=== PATIENT | female | born 1990 | race Caucasian/White ===

== ENCOUNTER 2018-10-28 10:27 | Emergency (ER) | payer OTHER ==
[2018-10-28] MEDS ORDERED: fentaNYL 100 MCG/2 ML INJ IVP ONE (11:07)
--- NOTE | 2018-10-28 11:22 | EDPHY ---
HPI/HX/ROS/PE/MDM Narrative: CLINICAL IMPRESSION: Dysphagia ASSESSMENT/PLAN: 28-year-old female presents to the emergency department with approximately 7-8 months of progressively worsening dysphagia. Patient reports she is now only tolerating liquid foods but reports no sensation of obstruction. She has been compliant with however felt outpatient PPI therapy, H2 blockers, Tums, dietary adjustments, and reports a 20 lb weight loss over the last 8 months. She has not been able to get in to a GI specialist despite attempts at contacting them. Labs are reassuring today with no evidence of pancreatitis, transaminitis, leukocytosis, severe dehydration, or electrolyte imbalance. Barium swallow shows no evidence of significant esophageal stricture and only trace GERD is noted. She received a GI cocktail with some improvement in symptoms. EKG reviewed with the ED attending, no evidence of acute ST or T-wave changes. Case Management met with the patient and was able to reschedule her GI appointment which was previously scheduled for December to tomorrow at 8:00 a.m.. I encouraged patient to keep this appointment. Case discussed with Dr. Dinero. Warning signs for return to ER outlined in d/c. DIFFERENTIAL DX: Differential diagnosis includes but not limited to chronic esophagitis, Crohn' s disease, esophageal stricture, achalasia, pancreatitis, ED PROCEDURES: See lab and imaging results below ED COURSE: 11:20 a.m.: Discussed with Dr. Dinero. Also discussed with case management Renee to help expedite an appointment with GI [facility] 11:43am: discussed with Dr. Barreto, will change to barium swallow vs gastrographen which he only orders for suspected leak. 12:30 p.m.: Case discussed with Dr. Barreto. Trace reflex noted on barium swallow with otherwise normal findings. Discussed with case management specialist Renee who was able to identify patient's GI provider as [facility]. They had a cancellation and can get the patient in tomorrow at 8:00 a.m. Which patient agrees to. CHIEF COMPLAINT: Painful swallowing HPI: This is an otherwise healthy 28-year-old female who presents to the emergency department with complaints of painful swallowing, substernal chest burning, upper abdominal pain with radiation to the back, and a 20 lb weight loss since January. Patient states symptoms began after she had a skiing accident in January and fractured several ribs. Since that time she has had persistent burning discomfort in the anterior chest. She had a normal cardiac workup at her primary care office. She has been trying Protonix for 5 months, Zantac before that and Tums before that. She has made significant dietary changes. At this point she states she cannot even eat solid food because she experiences so much pain. She feels her best upon awakening with an empty stomach. No reported fever or chills. She has had a prior cholecystectomy. She does have epigastric pain that radiates to the back and she describes this as"a knife going through my back". She denies black or bloody stools. No history of vomiting. She was not tested for H pylori. She has an appointment with an unknown GI specialist but not until December. She has apparently been trying to reach [facility] for an appointment without success. 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 There is no family history of esophageal cancer, ulcerative colitis, Crohn's disease, eosinophilic esophagitis , cardiac disease at a young age or autoimmune disease. 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 ENT: No sore throat, congestion, ear pain. Cardiovascular: No chest pain, no palpitations. Respiratory: No cough, no shortness of breath. Gastrointestinal: + abdominal pain, no vomiting, diarrhea. Skin: No rashes, color change. PHYSICAL EXAM: General Appearance: Alert, oriented, appropriate, cooperative, thin, NAD, well hydrated, non-toxic appearing, VSS, no hypoxia. HEENT: TMs are clear bilaterally no perforation or FB, no injection, no evidence of serous or mucopurulent otitis. Oropharynx clear is no erythema or exudates, no tonsillar hypertrophy or asymmetry. Dentition without abnormality. Neck: Supple, nontender, no lymphadenopathy, no midline pain, FROM, no meningismus. Respiratory: There are no retractions, lungs are clear to auscultation. Cardiac: Regular rate and rhythm, no murmurs or gallops. Gastrointestinal: Abdomen is soft, epigastric tenderness, bowel sounds normal, no masses/hernia, no rigidity, guarding or focal peritoneal findings. Neurological: [ Alert and oriented x 3 Skin: Warm, dry, no rashes, no nodules on palpation. MEDICAL DECISION MAKING: Patient was seen independently. Secondary supervising physician at time of evaluation was Dr. Dinero . Diagnosis: Dysphagia. New, requires workup Summary: See Assessment and Plan for summary of ED visit Clinical lab tests: ordered / reviewed. Discussed patient with another provider: Dr. Dinero, Dr. Barreto Patient Progress: Stable. - Data Points Laboratory Results: Laboratory Results 10/28/18 11:10 10/28/18 11:10 10/28/18 10/28/18 11:10 11:10 WBC 5.88 10^3/uL 10^3/uL (3.80-9.50) RBC 4.97 10^6/uL 10^6/uL (4.18-5.33) Hgb 14.9 g/dL g/dL (12.6-16.3) Hct 43.1 % % (38.0-47.0) MCV 86.7 fL fL (81.5-99.8) MCH 30.0 pg pg (27.9-34.1) MCHC 34.6 g/dL g/dL (32.4-36.7) RDW 11.8 % % (11.5-15.2) Plt Count 218 10^3/uL 10^3/uL (150-400) MPV 10.3 fL fL (8.7-11.7) Neut % (Auto) 69.3 % % (39.3-74.2) Lymph % (Auto) 23.6 % % (15.0-45.0) [place] % (Auto) 6.1 % % (4.5-13.0) Eos % (Auto) 0.5 % L % (0.6-7.6) Baso % (Auto) 0.3 % % (0.3-1.7) Nucleat RBC Rel Count 0.0 % % (0.0-0.2) Absolute Neuts (auto) 4.07 10^3/uL 10^3/uL (1.70-6.50) Absolute Lymphs (auto) 1.39 10^3/uL 10^3/uL (1.00-3.00) Absolute Monos (auto) 0.36 10^3/uL 10^3/uL (0.30-0.80) Absolute Eos (auto) 0.03 10^3/uL 10^3/uL (0.03-0.40) Absolute Basos (auto) 0.02 10^3/uL 10^3/uL (0.02-0.10) Absolute Nucleated RBC 0.00 10^3/uL 10^3/uL (0-0.01) Immature Gran % 0.2 % % (0.0-1.1) Immature Gran # 0.01 10^3/uL 10^3/uL (0.00-0.10) Sodium 138 mEq/L mEq/L (135-145) Potassium 3.6 mEq/L mEq/L (3.3-5.0) Chloride 106 mEq/L mEq/L (97-110) Carbon Dioxide 22 mEq/l mEq/l (22-31) Anion Gap 10 mEq/L mEq/L (6-14) BUN 10 mg/dL mg/dL (7-23) Creatinine 0.6 mg/dL mg/dL (0.6-1.0) Estimated GFR > 60 Glucose 90 mg/dL mg/dL (70-100) Calcium 9.8 mg/dL mg/dL (8.5-10.4) Total Bilirubin 1.3 mg/dL mg/dL (0.1-1.4) Conjugated Bilirubin 0.2 mg/dL mg/dL (0.0-0.5) Unconjugated Bilirubin 1.1 mg/dL mg/dL (0.0-1.1) AST 18 IU/L IU/L (14-46) ALT 25 IU/L IU/L (9-52) Alkaline Phosphatase 69 IU/L IU/L (38-126) Total Protein 8.7 g/dL H g/dL (6.3-8.2) Albumin 5.1 g/dL H g/dL (3.5-5.0) Lipase 33 IU/L IU/L (23-300) Medications Given: Discontinued Medications Fentanyl (Sublimaze) 50 mcg IVP EDNOW ONE Stop: 10/28/18 11:08 Last Admin: 10/28/18 11:25 Dose: 50 mcg General Time Seen by Provider: 10/28/18 10:52 Initial Vital Signs: Initial Vital Signs Temperature (C) 36.4 C 10/28/18 10:31 Heart Rate 70 10/28/18 10:31 Respiratory Rate 18 10/28/18 10:31 Blood Pressure 121/77 H 10/28/18 10:31 O2 Sat (%) 98 10/28/18 10:31 O2 Delivery Mode Room Air Allergies/Adverse Reactions: No Known Allergies Allergy (Verified 10/28/18 10:30) Home Medications: Medication Instructions Recorded DEXILANT 10/28/18 Gaviscon 80-14.2 mg Tab Chew 10/28/18 Hydrocodone/APAP 5/325 [[place] 1 - 2 tab PO Q4H PRN #10 tab 10/28/18 5/325 (*)] MIRENA 10/28/18 Prilosec 10/28/18 Zantac 10/28/18 Departure - Departure Disposition: Home, Routine, Self-Care Clinical Impression: Dysphagia Qualifiers: Dysphagia type: esophageal phase Qualified Code(s): R13.10 - Dysphagia, unspecified Condition: Good Instructions: Chronic Dysphagia (DC) Additional Instructions: DISCHARGE INSTRUCTIONS FROM YOUR DOCTOR Thank you for visiting our emergency department today. Please keep in mind that discharge from the emergency department does not mean that there is nothing wrong - it simply means that we have not identified an emergency condition that requires further evaluation or treatment in the hospital. You should always plan to follow up with primary care for re-evaluation of your condition in the next 2-3 days. If you have been referred to a specialist, please call as soon as possible (today or tomorrow) to schedule your follow up appointment at the appropriate time. You have an appointment tomorrow 10/29/[address] Hernandez at [facility] at 8:00am. Please arrive by 7:45am. Your barium swallow test today was read by the Radiology showing only trace reflux with no other abnormal findings. Lab work was reassuring. Please follow-up with GI and PCP as scheduled. Return to the emergency department sooner for worsening symptoms, inability to stay hydrated, vomiting blood, severe chest pain or shortness of breath, or any other concerns. People present with illnesses and injuries in different ways, and it is always possible that we have missed something. You may always return for re-evaluation if symptoms worsen or if they are not improving or if you develop new/different symptoms. Again, thank you for choosing our emergency department. We hope that you feel better. Referrals: NONE *PRIMARY CARE P,. [Primary Care Provider] - As per Instructions Maryann Cavazos MD [Non Staff Provider (MD)] - As per Instructions Prescriptions: Hydrocodone/APAP 5/325 [[place] 5/325 (*)] 1 - 2 tab PO Q4H PRN #10 tab PRN Reason: Pain, Moderate
[2018-10-28 11:27] LABS: PLATELET COUNT 218 10^3/uL (150-400)
[2018-10-28] MEDS ORDERED: VANCOMYCIN 1.5 GM in D5W 250 ML IV ONE (11:42)
--- NOTE | 2018-10-28 11:48 | CPEKG ---
Test Reason : OPEN Blood Pressure : / mmHG Vent. Rate : 060 BPM Atrial Rate : 000 BPM P-R Int : 152 ms QRS Dur : 077 ms QT Int : 415 ms P-R-T Axes : 074 061 021 degrees QTc Int : 415 ms Sinus arrhythmia Confirmed by Reji Dinero ([id number]) on 10/28/2018 11:48:37 AM Referred By: Confirmed By:Reji Dinero
[2018-10-28] MEDS ORDERED: MAG HYDROX/AL HYDROX/SIMETH 30 ML UDCUP PO ONE (12:43)
[2018-10-28] MEDS ORDERED: LIDOCAINE 2% VISCOUS 15 ML UDCUP PO ONE (12:43)
[2018-10-28] MEDS ORDERED: HYOSCYAMINE SULFATE 0.125 MG TAB PO ONE (12:43)
[2018-10-28 13:03] VITALS: BP 113/75
--- NOTE | 2018-10-28 19:33 | ASMTCMCOM ---
CM Note CM Note Notes: Requested to assist pt with getting an earlier appt w/a GI specialist. Pt states she has an appt at [facility] in [place] in December. This CM called [facility] ([phone]) and they had a cancellation tomorrow. Pt able to get an appt tomorrow 10/29 at 8am. This CM faxed over ED report and imaging results to [facility] ( ). CM available for further assistance if needed. Date Signed: 10/28/2018 07:32 PM Electronically Signed By:Renee Chen RN
== END 2018-10-28 13:00 | disposition home or self-care (01) ==
DX: R13.10 Dysphagia, unspecified (principal); Z90.49 Acquired absence of other specified parts of digestive tract
CPT/HCPCS: 96374; J3010; J3370

== ENCOUNTER 2018-12-23 12:58 | Emergency (ER) | payer OTHER ==
--- NOTE | 2018-12-23 13:41 | EDPHY ---
H & P Stated Complaint: CP Time Seen by Provider: 12/23/18 13:40 HPI/ROS: HPI: This is a 28-year-old female who presents with Chief Complaint: Chest pain Location: Chest Quality: Pain Duration: Months Signs and Symptoms: no shortness of breath at rest, no shortness of breath on exertion, no cough, no palpitations, no lower extremity edema, no wheezing, no orthopnea, no paroxysmal nocturnal dyspnea, no fever, no injury/trauma, no hemoptysis, no carpal pedal spasms Timing: Worsening Severity: Moderate Context: Patient reports that she was diagnosed GERD after being seen here late last year with the esophagram that showed reflux. She is status post cholecystectomy and appendectomy. She reports that over the last several months despite taking omeprazole in the mornings she has several episodes per day of generalized anterior chest pain as well as thoracic back pain not radiating in nature accompanied by shortness of breath. She reports that this happened several times per day and"takes my breath away." She reports that nothing makes the pain better or worse. She has changed her diet with no improvement in the symptoms. She reports that she saw banker mason in [place] and had an EGD performed outpatient that showed reflux and was negative for H pylori infection, peptic ulcer disease, gastritis. She does not drink alcohol or take NSAIDs regularly. She reports"I can't take it anymore any relief and I need answers." Modifying Factors: Omeprazole Comment: ROS: A comprehensive 10 system review of systems is otherwise negative aside from elements mentioned in the history of present illness. MEDICAL/SURGICAL/SOCIAL HISTORY: Medical history: GERD. Takes control pills orally. Last menstrual period approximately 6 weeks ago but this is not abnormal for her Surgical history: Cholecystectomy, appendectomy Social history: Employed. Nonsmoker. CONSTITUTIONAL: Well-developed, well-nourished young adult female, awake and alert, no obvious distress HEENT: Atraumatic and normocephalic, PERRL, EOMI. Nares patent; no rhinorrhea; no nasal mucosal edema. Tympanic membranes clear. Oropharynx clear, no exudate and moist pink mucosa. Airway patent. No lymphadenopathy. No meningismus. Cardiovascular: Normal S1/S2, regular rate, regular rhythm, without murmur rub or gallop. PULMONARY/CHEST: Symmetrical and nontender. Clear to auscultation bilaterally. Good air movement. No accessory muscle usage. ABDOMEN: Soft, nondistended, nontender, no rebound, no guarding, no peritoneal signs, no masses or organomegaly. No CVAT. EXTREMITIES: 2/2 pulses, strength 5/5, no deformities, no clubbing, no cyanosis or edema. NEUROLOGICAL: no focal neuro deficits. GCS 15. SKIN: Warm and dry, no erythema. no rash. Good capillary refill. Source: Patient, Old records Exam Limitations: No limitations - Personal History Current Tetanus/Diphtheria Vaccine: Yes Current Tetanus Diphtheria and Acellular Pertussis (TDAP): Yes - Medical/Surgical History Hx Asthma: No Hx Chronic Respiratory Disease: No Hx Diabetes: No Hx Cardiac Disease: No Hx Renal Disease: No Hx Cirrhosis: No Hx Alcoholism: No Hx HIV/AIDS: No Hx Splenectomy or Spleen Trauma: No Other PMH: GERD/ CHOLY APPY - Social History Smoking Status: Never smoked Constitutional: Initial Vital Signs Temperature (C) 36.8 C 12/23/18 13:03 Heart Rate 75 12/23/18 13:03 Respiratory Rate 16 12/23/18 13:03 Blood Pressure 119/84 H 12/23/18 13:03 O2 Sat (%) 93 12/23/18 13:03 O2 Delivery Mode Room Air Allergies/Adverse Reactions: No Known Allergies Allergy (Verified 12/23/18 13:01) Home Medications: Medication Instructions Recorded Bcp 12/23/18 Omeprazole 12/23/18 Medical Decision Making - Diagnostics Imaging Results: Imaging Impressions Chest/Thorax CTA 12/23/18 13:51 Impression: 1. No definite pulmonary thromboemboli. 2. No aortic aneurysm or dissection. 3. Normal CT chest. Findings and recommendations discussed with Emergency Department physician, Stephie Son at 1509 hour, 12/23/2018. Final report concurs with initial preliminary interpretation. ED Course/Re-evaluation: Vital signs reviewed and stable upon arrival. IV access, laboratory studies, CTA chest ordered Patient given 2 L normal saline, IV Ativan 1 mg, IV Reglan 10 mg, IV Benadryl 25 mg 1429: Labs reviewed. No signs of leukocytosis/anemia/platelet dysfunction/MARCUS/ elevated LFTs/electrolyte imbalance/pancreatitis/. 1509: Called by radiologist, Dr. Vargas on a who reports CT a chest shows no pulmonary embolism, no aortic aneurysm, no pleural effusion, no pneumonia 1540: Reassessed patient who reports near complete relief of symptoms. Suspect esophageal spasm versus anxiety versus gastroparesis Patient will follow up with her banker mason and work note provided per request. Patient politely declines any medications being started at this time and prefers to follow up with Gastroenterology. Patient is drinking liquids without difficulty prior to discharge. HEART score= low risk I reviewed the share decision making instrument with the patient, including risk of MACE, and the patient (and family) that are in agreement with the chosen disposition. This patient was seen under the supervision of my secondary supervising physician. I evaluated care for this patient with attending. Discussed this patient with Dr. Purdy who did not see the patient. Differential Diagnosis: Chest pain including but not limited to myocardial ischemia, pulmonary embolus, chest wall pain, pleural inflammation and pulmonary infectious causes. - Data Points Laboratory Results: Laboratory Results 12/23/18 13:57 12/23/18 13:57 12/23/18 12/23/18 12/23/18 13:57 13:57 13:57 WBC 7.74 10^3/uL 10^3/uL (3.80-9.50) RBC 4.48 10^6/uL 10^6/uL (4.18-5.33) Hgb 13.4 g/dL g/dL (12.6-16.3) Hct 38.7 % % (38.0-47.0) MCV 86.4 fL fL (81.5-99.8) MCH 29.9 pg pg (27.9-34.1) MCHC 34.6 g/dL g/dL (32.4-36.7) RDW 11.8 % % (11.5-15.2) Plt Count 191 10^3/uL 10^3/uL (150-400) MPV 10.0 fL fL (8.7-11.7) Neut % (Auto) 70.2 % % (39.3-74.2) Lymph % (Auto) 23.0 % % (15.0-45.0) [place] % (Auto) 5.4 % % (4.5-13.0) Eos % (Auto) 0.8 % % (0.6-7.6) Baso % (Auto) 0.3 % % (0.3-1.7) Nucleat RBC Rel Count 0.0 % % (0.0-0.2) Absolute Neuts (auto) 5.44 10^3/uL 10^3/uL (1.70-6.50) Absolute Lymphs (auto) 1.78 10^3/uL 10^3/uL (1.00-3.00) Absolute Monos (auto) 0.42 10^3/uL 10^3/uL (0.30-0.80) Absolute Eos (auto) 0.06 10^3/uL 10^3/uL (0.03-0.40) Absolute Basos (auto) 0.02 10^3/uL 10^3/uL (0.02-0.10) Absolute Nucleated RBC 0.00 10^3/uL 10^3/uL (0-0.01) Immature Gran % 0.3 % % (0.0-1.1) Immature Gran # 0.02 10^3/uL 10^3/uL (0.00-0.10) Sodium 137 mEq/L mEq/L (135-145) Potassium 3.4 mEq/L L mEq/L (3.5-5.2) Chloride 108 mEq/L mEq/L (97-110) Carbon Dioxide 21 mEq/l L mEq/l (22-31) Anion Gap 8 mEq/L mEq/L (6-14) BUN 10 mg/dL mg/dL (7-23) Creatinine 0.6 mg/dL mg/dL (0.6-1.0) Estimated GFR > 60 Glucose 88 mg/dL mg/dL (70-100) Calcium 9.0 mg/dL mg/dL (8.5-10.4) Total Bilirubin 0.5 mg/dL mg/dL (0.1-1.4) Conjugated Bilirubin 0.4 mg/dL mg/dL (0.0-0.5) Unconjugated Bilirubin 0.1 mg/dL mg/dL (0.0-1.1) AST 14 IU/L IU/L (14-46) ALT 19 IU/L IU/L (9-52) Alkaline Phosphatase 64 IU/L IU/L (38-126) Total Protein 7.6 g/dL g/dL (6.3-8.2) Albumin 4.6 g/dL g/dL (3.5-5.0) Lipase 51 IU/L IU/L (23-300) Beta HCG, Qual NEGATIVE Medications Given: Discontinued Medications Diphenhydramine HCl (Benadryl Injection) 25 mg IVP EDNOW ONE Stop: 12/23/18 13:53 Last Admin: 12/23/18 14:05 Dose: 25 mg Sodium Chloride (Ns) 500 mls @ 1,000 mls/hr IV EDNOW ONE PRN Reason: Protocol Stop: 12/23/18 14:19 Last Admin: 12/23/18 14:03 Dose: 500 mls Lorazepam (Ativan Injection) 1 mg IVP EDNOW ONE Stop: 12/23/18 13:52 Last Admin: 12/23/18 14:06 Dose: 1 mg Metoclopramide HCl (Reglan Injection) 10 mg IVP EDNOW ONE Stop: 12/23/18 13:53 Last Admin: 12/23/18 14:06 Dose: 10 mg Departure - Departure Disposition: Home, Routine, Self-Care Clinical Impression: Esophageal abnormality Condition: Good Instructions: Esophageal Spasm (ED), Gastroparesis (ED) Additional Instructions: Consume a minimum of 8-10 glasses of water or electrolyte fluid replacement drinks that include Gatorade, Powerade, Pedialyte. Eat a bland/low-fat diet with small meals. Please call for an appointment with your banker mason in [place], [place] in the next 2-3 days. Referrals: OTHER [facility],. [Sta[facility]] - 2-3 days, call for appt. ( Gastroenterologists in [place])
[2018-12-23] MEDS ORDERED: NS 500 ML IV ONE (13:50)
[2018-12-23] MEDS ORDERED: LORazepam 2 MG/ML INJ IVP ONE (13:51)
[2018-12-23] MEDS ORDERED: METOCLOPRAMIDE 10 MG/2 ML VIAL IVP ONE (13:52)
[2018-12-23 14:09] LABS: PLATELET COUNT 191 10^3/uL (150-400)
[2018-12-23] MEDS ORDERED: IOPAMIDOL (ISOVUE 370) 75 ML BTL IV ONE (14:30)
[2018-12-23 15:49] VITALS: BP 111/75
== END 2018-12-23 15:49 | disposition home or self-care (01) ==
DX: K22.4 Dyskinesia of esophagus (principal); K21.9 Gastro-esophageal reflux disease without esophagitis
CPT/HCPCS: 96374; J1200; J2060; J2765; Q9967